=== PATIENT | male | born 1980 | race Caucasian/White ===

== ENCOUNTER 2022-05-22 17:13 | Emergency (ER) | payer MEDICAID ==
[~2022-05-22] VITALS: Ht 193 cm; Wt 112.5 kg
[2022-05-22 17:24] VITALS: BP_SYST 152; BP_SYST 154
[2022-05-22 17:50] LABS: BILIRUBIN,URINE NEGATIVE (NEGATIVE); CLARITY/URINE CLEAR (CLEAR); COLOR,URINE YELLOW (YELLOW); GLUCOSE,URINE NEGATIVE (NEGATIVE); KETONES,URINE NEGATIVE (NEGATIVE); LEUKOCYTE ESTERASE ,URINE NEGATIVE (NEGATIVE); NITRITE, URINE NEGATIVE (NEGATIVE); PH,URINE 7.5 (5.0-8.0); PROTEIN URINE 1+ (NEGATIVE); UROBILINOGEN,URINE 0.2 (0.2-1.0)
[2022-05-22 17:56] LABS: BLOOD, URINE TRACE (NEGATIVE)
[2022-05-22 17:57] LABS: BASOPHILS % (AUTO) 0.4 % (0.0-2.0); EOSINOPHILS # (AUTO) 0.1 K/uL (0.0-0.4); EOSINOPHILS % (AUTO) 0.6 % (0.0-4.0); HEMATOCRIT 42.7 % (36-54); HEMOGLOBIN 14.7 g/dL (14.0-18.0); LYMPHOCYTES # (AUTO) 2.6 K/uL (1.0-5.5); LYMPHOCYTES % (AUTO) 29.8 % (20.5-51.5); MEAN CORPUSCULAR HEMOGLOBIN 29 pg (27-31); MEAN CORPUSCULAR HGB CONC 34 % (32-36); MEAN CORPUSCULAR VOLUME 85 fL (79.0-98.0); MONOCYTES # (AUTO) 0.6 K/uL (0.0-1.0); MONOCYTES % (AUTO) 6.5 % (1.7-9.3); NEUTROPHILS # (AUTO) 5.5 K/uL (1.8-7.7); NEUTROPHILS % (AUTO) 62.7 % (40.0-70.0); PLATELET COUNT (AUTO) 330 K/uL (130-430); RED BLOOD CELL COUNT(AUTO) 5.05 MIL/uL (4.2-6.2); RED CELL DISTRIBUTION WIDTH 14.1 % (9.0-15.0); WHITE BLOOD COUNT (AUTO) 8.8 K/uL (4.8-10.8)
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
[2022-05-22 18:01] LABS: BACTERIA,URINE None Seen /HPF (None Seen); MUCUS,URINE None Seen /LPF (None Seen); WBC,URINE NONE SEEN /HPF (0-3)
--- NOTE | 2022-05-22 18:15 | NUR ---
Dr Bryan [facility]
[2022-05-22 18:23] LABS: CALCIUM 9.1 mg/dL (8.4-11.0); CREATININE 0.89 mg/dL (0.55-1.30)
[2022-05-22 18:27] LABS: ALBUMIN 3.8 g/dL (3.4-4.8); TOTAL BILIRUBIN 0.3 mg/dL (0.0-1.0)
[2022-05-22] MEDS ORDERED: BACITRACIN 1 GM OINT TP ONE (19:33)
[2022-05-22 19:46] VITALS: BP_SYST 149
--- NOTE | 2022-05-22 19:46 | NUR ---
Patient given written and verbal discharge instructions and verbalizes understanding. ER MD discussed with patient the results and treatment provided. Patient in stable condition. ID arm band removed. IV catheter removed intact and dressing applied, no active bleeding. no Rx of given. Patient educated on pain management and to follow up with PMD. Pain Scale 0/10. Opportunity for questions provided and answered. Medication side effect fact sheet provided.
== END 2022-05-22 19:46 ==
LOC: SED 17:13
DX: S31.149A Puncture wound of abdominal wall with foreign body, unspecified quadrant without penetration into peritoneal cavity, initial encounter (principal); Z79.899 Other long term (current) drug therapy; X58.XXXA Exposure to other specified factors, initial encounter; Y93.89 Activity, other specified; Y92.89 Other specified places as the place of occurrence of the external cause; Y99.8 Other external cause status
CPT/HCPCS: 99285; 74177; 80053; 81000; 82150; 83690; 85025; 36415; 76376; Q9967